=== PATIENT | female | born 1995 | race Caucasian/White ===

== ENCOUNTER 2019-12-19 00:14 | Emergency (ER) | payer OTHER ==
[2019-12-19] MEDS ORDERED: PROCHLORPERAZINE INJ 5 MG/ML 2 ML VIAL IV ONE (00:30)
[2019-12-19] MEDS ORDERED: diPHENhydraMINE IV* 50 MG/ML 1 ml VIAL (BENADRYL) IV ONE (00:30)
[2019-12-19] MEDS ORDERED: Ketorolac INJ* 30 MG/ML 1 ML VIAL IV PUSH ONE (00:30)
--- NOTE | 2019-12-19 00:33 | ED ---
Headache - HPI Summary HPI Summary: This pt is a 24 Y/O F presenting to [facility] with a CC of a headache that began yesterday at 0200. She states that she has been taking her usual medications without relief and has been sleeping throughout the day. She states that she still has a headache, described as her regular migraine and is currently rated a 5/10 in severity. She states that she has photophobia and lights have been aggravating her symptoms. She also reports nausea. She denies any fevers, chills , SOB, CP, vomiting, myalgia, and sore throat. She states no other PMHx. She has no alleviating factors even after ingesting her prescribed migraine medications and Advil. - History Of Current Complaint Chief Complaint: EDHeadache Stated Complaint: HEADACHE PER PT Time Seen by Provider: 12/19/19 00:25 Hx Obtained From: Patient Last Known Well Date: 12/18/2019 before 0200 Onset/Duration: Sudden Onset, Still Present Initially Headache Was: Initial Pain Scale(0-10)= - 5 Currently Pain Is: Current Pain Scale(0-10)= - 5 Timing: Constant Character: Migraine Aggravating Factor: Bright Lights Allevating Factors: Nothing Associated Signs And Symptoms: Negative - fevers, chills, SOB, CP, vomiting, myalgia, and sore throat, Nausea, Visual Changes - photophobia - Allergies/Home Medications Allergies/Adverse Reactions: Allergies Allergy/AdvReac Type Severity Reaction Status Date / Time No Known Allergies Allergy Verified 12/19/19 00:18 PMH/Surg Hx/FS Hx/Imm Hx Previously Healthy: Yes Endocrine/Hematology History: Denies: Hx Diabetes Cardiovascular History: Denies: Hx Hypertension Respiratory History: Denies: Hx Asthma Neurological History: Reports: Hx Headaches, Hx Migraine - Cancer History Hx Chemotherapy: No Hx Radiation Therapy: No - Surgical History Surgical History: None - Immunization History Immunizations Up to Date: Yes Infectious Disease History: No Infectious Disease History: Denies: Traveled Outside the [place] in Last 30 Days - Family History Known Family History: Positive: Hypertension, Diabetes - Social History 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 Negative: Abdominal Pain, Vomiting Negative: Myalgia Positive: Headache All Other Systems Reviewed And Are Negative: Yes Physical Exam - Summary Physical Exam Summary: Appearance: Well-appearing, Well-nourished, lying in bed comfortably Skin: Warm, dry, no obvious rash Eyes: sclera anicteric, no conjunctival pallor ENT: mucous membranes moist, pharynx appears normal Neck: Supple, nontender Respiratory: Clear to auscultation, no signs of respiratory distress Cardiovascular: Normal S1, S2. No murmurs. Normal distal pulses in tibial and radial bilaterally. Abdomen: Soft, nontender, normal active bowel sounds present Musculoskeletal: Normal, Strength/ROM Intact Neurological: A&Ox3, awake and alert, mentation is normal, speech is fluent and appropriate Psychiatric: affect is normal, does not appear anxious or depressed Triage Information Reviewed: Yes Vital Signs On Initial Exam: Initial Vitals Temp Pulse Resp BP Pulse Ox 97.9 F 84 16 112/80 99 12/19/19 00:15 12/19/19 00:15 12/19/19 00:15 12/19/19 00:15 12/19/19 00:15 Vital Signs Reviewed: Yes Procedures - Sedation Patient Received Moderate/Deep Sedation with Procedure: No Diagnostics - Vital Signs Vital Signs Temp Pulse Resp BP Pulse Ox 12/19/19 00:15 97.9 F 84 16 112/80 99 - Laboratory Lab Statement: Any lab studies that have been ordered have been reviewed, and results considered in the medical decision making process. Headache Course/Dx - Course Course Of Treatment: This pt is a 24 Y/O F presenting to [facility] with a CC of a headache that began yesterday at 0200. She states that she has been taking her usual medications without relief and has been sleeping throughout the day. She states that she still has a headache, described as her regular migraine and is currently rated a 5/10 in severity. She states that she has photophobia and lights have been aggravating her symptoms. Her PE had no acute abnormalities. She was given torodal, compazine, IV fluids, and benadryl. She was discharged home with a Dx of a migraine headache. - Diagnoses Provider Diagnoses: Migraine headache - Critical Care Time Critical Care Statement: Critical care time is provided exclusive of any time spent performing procedures. Discharge ED - Sign-Out/Discharge Documenting (check all that apply): Patient Departure - discharge - Discharge Plan Condition: Improved Disposition: HOME Patient Education Materials: Migraine Headache (ED) Referrals: [facility] [Outside] - If Needed - Billing Disposition and Condition Condition: IMPROVED Disposition: Home - Attestation Statements Document Initiated by Alyibe: Yes Documenting Scribe: Miguel Angel Hoffman Provider For Whom Scribe is Documenting (Include Credential): Gomez De Paz MD Scribe Attestation: Miguel Angel Gutierrez, scribed for Gomez De Paz MD on 12/19/19 at 0333. Scribe Documentation Reviewed: Yes Provider Attestation: The documentation as recorded by the Miguel Angel guillermo accurately reflects the service I personally performed and the decisions made by me, Gomez De Paz MD Status of Scribe Document: Viewed
[2019-12-19] MEDS: NS 0.9% 1000 ML** 2,000 ML IV ONE ×2 (00:47→00:48)
[2019-12-19 01:46] VITALS: BP 115/75
== END 2019-12-19 01:45 | disposition home or self-care (01) ==
LOC: ED 00:14
DX: G43.909 Migraine, unspecified, not intractable, without status migrainosus (principal); R11.0 Nausea
CPT/HCPCS: 96361; 96374; 96375; 99282; J0780; J1200; J1885